=== PATIENT | female | born 1995 | race Caucasian/White ===

== ENCOUNTER 2019-06-27 11:03 | Emergency (ER) | payer MEDICAID ==
[~2019-06-27] VITALS: Ht 162.6 cm; Wt 163.6 kg
[~2019-06-27 11:03] MED LIST: DESERYL100 MG PO; FLUTICASONE PRO16 GM NASAL; WELLBUTRIN75 MG PO
[2019-06-27 11:17] VITALS: Ht 162.6 cm; Wt 163.6 kg
[2019-06-27] MEDS ORDERED: BACLOFEN20 M1 PO (12:37)
[2019-06-27] MEDS ORDERED: VOLTAREN75 MG PO (12:37)
[2019-06-27 12:53] VITALS: BP 114/72
== END 2019-06-27 12:54 | disposition home or self-care (01) ==
LOC: D.ER 11:03
DX: M54.5 Low back pain (principal); M62.838 Other muscle spasm; R05 Cough